=== PATIENT | female | born 1975 | race Caucasian/White ===

== ENCOUNTER 2017-01-15 11:06 | Day surgery (SDC) | payer BC, OTHER ==
[~2017-01-15 11:06] MED LIST: ALDACTONE50 M1 PO; ALEVE PO; ALLEGRA ALLERG180 M1 PO; BUSPIRONE HCL30 M1 PO; DEPLIN-ALGAL O1 EAC1 PO; DESVENLAFAXINE50 M1 PO; ENBREL50 MG/1 M1 SC; FISH OIL 1,0001 EAC8 PO; FLONASE ALLERG9.9 ML; GLUCOPHAGE XR500 M1 PO; MULTIVITAMINS1 EAC6 PO; NEXIUM PO; ULTRAM50 M1 PO; VIMOVO DR 500-1 EAC1 PO; VITAMIN D1000 UNI3 PO
== END 2017-01-15 17:00 ==
LOC: SRG 11:06 → SHSB 11:07 → ORE 13:17 → PACU 14:56 → SHSB 15:35
PROC: 09BT4ZZ Excision of Left Frontal Sinus, Percutaneous Endoscopic Approach (ICD-10-PCS; principal; 2017-01-15)
PROC: 09BR4ZZ Excision of Left Maxillary Sinus, Percutaneous Endoscopic Approach (ICD-10-PCS; 2017-01-15)
PROC: 09BV4ZZ Excision of Left Ethmoid Sinus, Percutaneous Endoscopic Approach (ICD-10-PCS; 2017-01-15)
DX: J32.4 Chronic pansinusitis (principal); M19.90 Unspecified osteoarthritis, unspecified site; F41.9 Anxiety disorder, unspecified; F32.9 Major depressive disorder, single episode, unspecified; Z88.6 Allergy status to analgesic agent; E66.9 Obesity, unspecified; Z88.0 Allergy status to penicillin; Z88.8 Allergy status to other drugs, medicaments and biological substances; Z79.899 Other long term (current) drug therapy; Z90.49 Acquired absence of other specified parts of digestive tract; Z98.890 Other specified postprocedural states; Z68.28 Body mass index [BMI] 28.0-28.9, adult; Z90.710 Acquired absence of both cervix and uterus
CPT/HCPCS: C1726